=== PATIENT | male | born 2000 | race Caucasian/White ===

== ENCOUNTER 2023-02-08 13:30 | Emergency (ER) | payer MEDICAID ==
[2023-02-08 13:47] VITALS: RESP 20; TEMP 97.6
[2023-02-08] MEDS ORDERED: XYLOCAINE 1% HCL 20 ML MDV ONE (14:47)
[2023-02-08 15:04] VITALS: BP 133/82; PULSE 104; O2SAT 96
--- NOTE | 2023-02-08 15:34 | XRAY ---
Indication: Laceration. Comparison: None 3 view right hand demonstrates anterior lateral wrist laceration without radiopaque foreign body. Old 5th metacarpal fracture. No other bony, articular, or soft tissue abnormalities.
--- NOTE | 2023-02-08 15:34 | XRAY ---
Indication: Laceration. Comparison: None 3 view right wrist demonstrates anterior laceration without radiopaque foreign body. Old 5th metacarpal fracture. No other bony, articular, or soft tissue abnormalities.
[2023-02-08] MEDS ORDERED: BACIGUENT PACKET ONE (15:36)
--- NOTE | 2023-02-08 15:39 | ERPHSYRPT ---
- History of Present Illness Source: patient Exam Limitations: no limitations Patient Subjective Stated Complaint: Pt states "I hi8t a piece of glass and it hit back." Triage Nursing Assessment: Pt presented alerrt and oriented X 3, skin pwd. Pt ambulates with an upright steady agit, able to speak in clear full sentences. Pt has laceration ntoed to medial right forearm, bleeding controlled, two lacerations noted to right lateral wrist, bleeding controlled with pressure bandage. Physician History: 22-year-old male presents with a right ventral wrist laceration after slapping a light fixture at his house earlier in the day. Patient has a 6 cm right ventral wrist laceration with mild to moderate bleeding. Patient also has a very superficial right proximal forearm laceration that will not require repair. He has good distal capillary return, sensation, and radial-ulnar pulse. Patient denies suicidal attempt. He is right-handed other new injuries are denied at this time. Tetanus is updated this time per patient. Occurred: this morning Method of Injury: other (Patient slapped a light fixture at his house.) Quality: sharpness Severity of Pain-Max: moderate Severity of Pain-Current: mild Extremities Pain Location: forearm: right, wrist: right Modifying Factors: Improves With: movement Associated Symptoms: none Allergies/Adverse Reactions: No Known Drug Allergies Allergy (Verified 02/08/23 13:48) Hx Tetanus, Diphtheria Vaccination/Date Given: Yes Hx Influenza Vaccination/Date Given: No Hx Pneumococcal Vaccination/Date Given: No Immunizations Up to Date: Yes Travel Risk - International Travel Have you traveled outside of the country in past 3 weeks: No - Coronavirus Screening Are you exhibiting any of the following symptoms?: No Close contact with a COVID-19 positive Pt in past 14-21 Days: No - Vaccine Status Have you recieved a Covid-19 vaccination: No - Review of Systems Constitutional: No Symptoms Eyes: No Symptoms Ears, Nose, & Throat: No Symptoms Respiratory: No Symptoms Cardiac: No Symptoms Abdominal/Gastrointestinal: No Symptoms Genitourinary Symptoms: No Symptoms Skin: No Symptoms Psychological: No Symptoms Endocrine: No Symptoms Hematologic/Lymphatic: No Symptoms Immunological/Allergic: No Symptoms - Past Medical History Pertinent Past Medical History: No - Past Surgical History Past Surgical History: No - Social History Smoking Status: Current every day smoker How long have you smoked: 0.2 Exposure to second hand smoke: Yes Drug Use: marijuana, cocaine Patient Lives Alone: Yes - Nursing Vital Signs Nursing Vital Signs: Initial Vital Signs Temperature 97.6 F 02/08/23 13:41 Pulse Rate 106 H 02/08/23 13:41 Respiratory Rate 20 02/08/23 13:41 Blood Pressure 139/81 02/08/23 13:41 O2 Sat by Pulse Oximetry 98 02/08/23 13:41 Pain Scale Pain Intensity 0 Mild tachycardia noted. - Physical Exam General Appearance: no apparent distress (Apparent distress noted.) Eyes, Ears, Nose, Throat Exam: normal ENT inspection (Otorrhea or rhinorrhea noted.) Neck Exam: normal inspection (C-spine nontender to palpation. No neck lacerations noted.) Cardiovascular/Respiratory Exam: regular rate/rhythm (Regular rate rhythm without heaves gallops murmurs rubs at time of exam.) Abdominal Exam: non-tender (Soft nontender to palpation.) Back Exam: normal inspection (T and L-spine nontender to palpation.) Shoulder Exam: normal inspection (Shoulders without evidence of trauma bilaterally.) Elbow/Forearm Exam: abrasions (Right proximal ventral forearm with superficial laceration-abrasion without need for repair. Good distal radial pulse, distal sensation, and capillary turn.) Hand Exam: laceration (Right right ventral wrist with 6 cm laceration/no arterial bleeding noted/no obvious foreign body/good radial/ulnar pulse, distal sensation, and capillary return. Very superficial abrasion right palm.) DTR - Upper Extremity Exam: bicep (R): 2+, bicep (L): 2+ Neuro/Tendon Exam: normal sensation, normal motor functions, normal tendon functions, responds to pain, no evidence tendon injury, No motor deficit, No sensory deficit Mental Status Exam: alert, oriented x 3, cooperative Skin Exam: normal color, warm, dry SpO2 Interpretation: normal SpO2: 96 O2 Delivery: Room Air Procedures - Laceration/Wound Repair Right Volar Wrist Wound Location: Right Wound Length (cm): 6 Wound's Depth, Shape: linear Wound Explored: clean Irrigated: Yes Hibiclens Prep: Yes Anesthesia: local, 1% Lidocaine Volume Anesthetic (ccs): 10 Wound Repaired With: sutures Suture Size/Type: 3-0 (3.0 Ethilon x11) Number of Sutures: 11 Sterile Dressing Applied?: Yes - Course Nursing assessment & vital signs reviewed: Yes Ordered Tests: Active Orders 24 hr Category Date Time Status HAND (MINIMUM 3 VIEWS) Stat Exams 02/08/23 14:52 Completed WRIST (MIN 3 VIEWS) Stat Exams 02/08/23 14:52 Completed Medication Summary Discontinued Medications Generic Name Dose Route Start Last Admin Trade Name Jose Maria PRN Reason Stop Dose Admin Bacitracin Zinc Confirm 02/08/23 15:36 Bacitracin Packet 1 Each Pckt Administered 02/08/23 15:37 Dose 2 each .ROUTE .STK-MED ONE Lidocaine HCl Confirm 02/08/23 14:47 Lidocaine Hcl 1% 20 Ml Mdv 20 Ml Ml Administered 02/08/23 14:48 Dose 1 ml .ROUTE .STK-MED ONE - Progress Progress: improved Progress Note: 02/08/23 17:48 Nursing note and vital signs reviewed. No food or housing insecurities noted. Right ventral 6 cm wrist laceration prepped sterilely with Hibiclens, after initial washing with Hibiclens per nursing. Anesthesia with 1% lidocaine without epinephrine. Wound explored without evidence of tendon or vascular injury. No evidence of foreign body. Wound closed with 3.0 Ethilon x11. No co mplications noted. Patient also with 1/2 cm laceration distal to the 6 cm laceration, which was also cleansed with Hibiclens. Anesthesia with 1% lidocaine without epi. Explored without significant and findings. No foreign bodies noted. Closed 3.0 Ethilon x1. No complications noted. Patient's right upper extremity with good distal radial and ulnar pulses, good distal capillary return, good distal sensation, and full range of motion of right wrist and hand without evidence of tendon injury. Wound dressed sterilely per nursing. Patient is up-to-date on his Tdap. Patient prescribed Augmentin 875 mg p.o. twice daily for 10 days. Patient advised to keep laceration clean for 3 days and then it is okay to wash 1-2 times a day with mild soap and water. Patient is also advised to watch out for signs of infection, including increasing redness, increasing pain, any pus, or temperature greater 100.5. 02/08/23 17:54 Patient denied suicidal ideation or attempt during his entire visit. Counseled pt/family regarding: diagnosis, need for follow-up, rad results Medical Desision Making - Risk of complications The pt has a mod risk of morbidity or mortality based on: Need for prescription drug management - Departure Departure Disposition: Home Clinical Impression: Laceration of right wrist Condition: Stable Critical Care Time: No Referrals: DOCTOR,NO FAMILY [Primary Care Provider] - Follow up/PCP as directed Instructions: Laceration Repair With Stitches (DC) Additional Instructions: Keep laceration dry for 3 days. After 3 days, it is okay to wash the laceration 1-2 times a day with mild soap and water (do not scrub the wound ) Suture removal in 10 days Watch for signs of infection-increasing redness/increasing pain/temperature greater 100.5/any pus Start your antibiotics KAYCEE Return to ER at the first sign of an infection Motrin Tylenol for pain Prescriptions: Amox Tr/Potass Clav. 875 mg [Augmentin 875-125 Tablet] 1 each PO BID 10 Days #20 tablet
== END 2023-02-08 15:58 | disposition home or self-care (01) ==
LOC: ED 13:30
DX: S61.511A Laceration without foreign body of right wrist, initial encounter (principal); S51.811A Laceration without foreign body of right forearm, initial encounter; W22.09XA Striking against other stationary object, initial encounter; W25.XXXA Contact with sharp glass, initial encounter; Z28.310 Unvaccinated for COVID-19; Z72.0 Tobacco use
CPT/HCPCS: 12002; 73110; 73130; 99283; A9270-GY